=== PATIENT | male | born 1995 | race Caucasian/White ===

== ENCOUNTER 2018-11-28 17:59 | Emergency (ER) | payer OTHER ==
[2018-11-28 18:06] VITALS: BP 129/73
--- NOTE | 2018-11-28 18:22 | EDPHY ---
HPI/HX/ROS/PE/MDM Narrative: CHIEF COMPLAINT: Left heel pain HPI: This patient is a healthy 22-year-old male. He presents with left heel pain. Three days ago, he was playing soccer and jumped up, landing hard on his heel. He was wearing soccer cleats. He has had persistent pain since then and has been taking ibuprofen without relief. He has been unable to walk due to the discomfort. He denies any other injuries. No other recent trauma or illness. REVIEW OF SYSTEMS: A comprehensive 10 system review of systems is otherwise negative aside from elements mentioned in the history of present illness and medical decision making. PMH: Denies. SOCIAL HISTORY: Lives in [place]. Does not abuse tobacco, drugs, or alcohol. PHYSICAL EXAM: General:Patient is alert, in no acute distress. Skin: Normal color. No rash. Warm and dry. Left foot and ankle: Ecchymosis to lateral heel. No pain along the Achilles, which is intact. No pain to midfoot. Neuro: Oriented x3. Normal motor function. Normal sensory function. ED Course: 22 y/o male presents with left heel pain secondary to an injury while playing soccer. Plan for x-ray for further evaluation. X-ray is negative for acute osseous abnormalities. Reassessed patient. Discussed imaging results. Plan to discharge home in good condition. Follow up and return precautions discussed. The patient is comfortable with this plan. General Time Seen by Provider: 11/28/18 18:10 Initial Vital Signs: Initial Vital Signs Temperature (C) 36.9 C 11/28/18 18:04 Heart Rate 77 11/28/18 18:04 Respiratory Rate 16 11/28/18 18:04 Blood Pressure 129/73 H 11/28/18 18:04 O2 Sat (%) 95 11/28/18 18:04 O2 Delivery Mode Room Air Allergies/Adverse Reactions: No Known Allergies Allergy (Unverified 11/28/18 18:03) Home Medications: Medication Instructions Recorded NK [No Known Home Meds] 11/28/18 Departure - Departure Disposition: Home, Routine, Self-Care Clinical Impression: Pain in heel Qualifiers: Laterality: left Qualified Code(s): M79.672 - Pain in left foot Contusion of foot, left Qualifiers: Encounter type: initial encounter Qualified Code(s): S90.32XA - Contusion of left foot, initial encounter Condition: Good Instructions: Foot Contusion (ED) Additional Instructions: Rest, ice, elevation. Take ibuprofen or Tylenol as directed on the packaging as needed for pain. Follow up with an orthopedic surgeon if symptoms persist. We have provided a referral to our water treatment specialist agent contract clerk. Return to the emergency department for worsening pain, swelling, numbness, weakness or other concerns. Referrals: Niraj Odom MD [Medical Doctor] - As per Instructions Report Scribed for: Param Ortega Report Scribed by: Rosemarie Jackson Date of Report: 11/28/18 Time of Report: 18:22 Physician Review and Approval Statement: Portions of this note were transcribed by an ED scribe. I personally performed the history, physical exam, and medical decision making; and confirm the accuracy of the information in the transcribed note.
== END 2018-11-28 18:59 | disposition home or self-care (01) ==
DX: S90.32XA Contusion of left foot, initial encounter (principal); X50.1XXA Overexertion from prolonged static or awkward postures, initial encounter; Y93.66 Activity, soccer